=== PATIENT | male | born 1990 | race Caucasian/White ===

== ENCOUNTER 2019-05-28 12:49 | Emergency (ER) | payer OTHER ==
[2019-05-28 13:44] LABS: ABS Basophils 0.1 10^3/ul (0-0.2); ABS Eosinophils 0.1 10^3/ul (0-0.6); ABS Monocytes 0.9 10^3/ul (0-0.8); ABS Neutrophils 3.7 10^3/ul (1.5-7.7); Eosinophil % 0.8 %; Hematocrit 47 % (42-52); Hemoglobin 16.2 g/dL (14.0-18.0); Lymphocyte % 30.3 %; Mean Corpuscular HGB Conc 35 g/dL (31-36); Mean Corpuscular Hemoglobin 33 pg (27-31); Mean Corpuscular Volume 94 fL (80-94); Mean Platelet Volume 7.8 fL (7.4-10.4); Nucleated Red Blood Cells % 0.1; Platelet Count 309 10^3/uL (150-450); Red Blood Count 4.95 10^6 /uL (4.18-5.48); Red Cell Distribution Width 12 % (10-15); White Blood Count 6.7 10^3/uL (3.5-10.8)
[2019-05-28 14:06] LABS: ALT 20 U/L (7-52); AST 21 U/L (13-39); Albumin 4.5 g/dL (3.2-5.2); Albumin/Globulin Ratio 1.8 (1-3); Alkaline Phosphatase 93 U/L (34-104); Anion Gap 5 mmol/L (2-11); BUN/Creatinine Ratio 10.1 (8-20); Blood Urea Nitrogen 12 mg/dL (6-24); C Reactive Protein 2.03 mg/L (<8.01); CO2 Carbon Dioxide 28 mmol/L (22-32); Calcium 9.8 mg/dL (8.6-10.3); Chloride 105 mmol/L (101-111); EGFR African American 86.9 (>60); EGFR Non-African American 71.8 (>60); Globulin 2.5 g/dL (2-4); Glucose 112 mg/dL (70-100); Potassium 4.5 mmol/L (3.5-5.0); Sodium 138 mmol/L (135-145)
[2019-05-28 14:26] LABS: Alcohol < 10 mg/dL (<10)
--- NOTE | 2019-05-28 16:39 | ED ---
Headache - HPI Summary HPI Summary: A 29 y/o male presents to [facility] with a chief complaint of a headache at the base of his head, by his neck. At triage he rated his pain as a 4/10 in severity. He notes that 3 days ago just after doing pushups he had pain in the back of his head near his neck, and also had some muscle spasms. This episode resolved, but yesterday at 16:00 when standing his pain returned and has been constant but less severe. He denies any pain with movement. He reports some nausea this morning, and says that one of his eyes intermittently has a hard time focusing and he jiang blurred vision. Pt denies any fever, chills, erythema of eyes, sore throat, CP, SOB, cough, abdominal pain, vomiting, dysuria, hematuria, myalgia, edema, or rash. He denies being prone to headache or migraines. He denies any PMHx, and says that he is not prone to migraines or headaches. He notes a FHx of migraines from his mother. SHx of knee surgery. He says that he drinks daily and consumes anywhere from 2-[address] up to 10 beers every day. He says that he has gone days without drinking and if he does not drink he does not withdrawal. - History Of Current Complaint Chief Complaint: EDHeadache Stated Complaint: SEVERE HEADACHE/HARD TIME STANDING PER PT Time Seen by Provider: 05/28/19 16:14 Hx Obtained From: Patient Onset/Duration: Sudden Onset, Started days ago, Still Present Initially Headache Was: Severe Currently Pain Is: Current Pain Scale(0-10)= - 4, Moderate Timing: Constant, Days Character: Unable To Describe Aggravating Factor: Nothing Allevating Factors: Nothing Associated Signs And Symptoms: Nausea, Neck Pain, Visual Changes, Other (Noted In Comments) - lightheaded - Allergies/Home Medications Allergies/Adverse Reactions: Allergies Allergy/AdvReac Type Severity Reaction Status Date / Time No Known Allergies Allergy Verified 05/28/19 13:01 Home Medications: Home Medications NK [No Home Medications Reported] 05/28/19 [History Confirmed 05/28/19] PMH/Surg Hx/FS Hx/Imm Hx Sensory History: Denies: Hx Deafness EENT History: Denies: Hx Deafness Neurological History: Denies: Hx Headaches, Hx Migraine - Surgical History Surgical History: Yes Surgery Procedure, Year, and Place: knee surgery Infectious Disease History: No Infectious Disease History: Denies: Traveled Outside the [place] in Last 30 Days - Family History Known Family History: Positive: Other - positive: migraines - mother - Social History Alcohol Use: Daily Substance Use Type: Reports: Marijuana Smoking Status (MU): Never Smoked Tobacco Review of Systems Negative: Fever, Chills Positive: Blurred Vision. Negative: Erythema Negative: Sore Throat Negative: Chest Pain Negative: Shortness Of Breath, Cough Positive: Nausea. Negative: Abdominal Pain, Vomiting Negative: dysuria, hematuria Positive: Myalgia, Other - positive: neck stiffness at the base of the skull, muscle spasms. Negative: Edema Negative: Rash Neurological: Other - positive: lightheaded Positive: Headache All Other Systems Reviewed And Are Negative: Yes Physical Exam - Summary Physical Exam Summary: Constitutional: Well-developed, Well-nourished, Alert. (-) Distressed Skin: Warm, Dry HENT: Normocephalic; Atraumatic Eyes: Conjunctiva normal Neck: Musculoskeletal ROM normal neck. (-) JVD, (-) Stridor, (-) Tracheal deviation Cardio: Rhythm regular, rate normal, Heart sounds normal; Intact distal pulses; The pedal pulses are 2+ and symmetric. Radial pulses are 2+ and symmetric. (-) Murmur Pulmonary/Chest wall: Effort normal. (-) Respiratory distress, (-) Wheezes, (-) Rales Abd: Soft. (-) Tenderness, (-) Distension, (-) Guarding, (-) Rebound Musculoskeletal: (-) Edema Lymph: (-) Cervical adenopathy Neuro: Alert, Oriented x3, Strength normal, Cranial nerves II-XII are grossly intact. (-) Dysmetria, (-) Nystagmus, (-) Ataxia by finger to nose testing, (-) Sensory deficit. Mild tenderness right occipital scalp, full head/neck ROM Psych: Mood and affect Normal Triage Information Reviewed: Yes Vital Signs On Initial Exam: Initial Vitals Temp Pulse Resp BP Pulse Ox 99.0 F 65 14 149/104 98 05/28/19 12:58 05/28/19 12:58 05/28/19 12:58 05/28/19 12:58 05/28/19 12:58 Vital Signs Reviewed: Yes Diagnostics - Vital Signs Vital Signs Temp Pulse Resp BP Pulse Ox 05/28/19 15:06 98.3 F 62 16 148/92 99 05/28/19 12:58 99.0 F 65 14 149/104 98 - Laboratory Lab Results: Lab Results 05/28/19 05/28/19 05/28/19 Range/Units 13:33 13:33 13:33 WBC 6.7 (3.5-10.8) 10^3/uL RBC 4.95 (4.18-5.48) 10^6 /uL Hgb 16.2 (14.0-18.0) g/dL Hct 47 (42-52) % MCV 94 (80-94) fL MCH 33 H (27-31) pg MCHC 35 (31-36) g/dL RDW 12 (10-15) % Plt Count 309 (150-450) 10^3/uL MPV 7.8 (7.4-10.4) fL Neut % (Auto) 54.9 % Lymph % (Auto) 30.3 % [place] % (Auto) 13.0 % Eos % (Auto) 0.8 % Baso % (Auto) 1.0 % Absolute Neuts (auto) 3.7 (1.5-7.7) 10^3/ul Absolute Lymphs (auto) 2.0 (1.0-4.8) 10^3/ul Absolute Monos (auto) 0.9 H (0-0.8) 10^3/ul Absolute Eos (auto) 0.1 (0-0.6) 10^3/ul Absolute Basos (auto) 0.1 (0-0.2) 10^3/ul Absolute Nucleated RBC 0.0 10^3/ul Nucleated RBC % 0.1 Sodium 138 (135-145) mmol/L Potassium 4.5 (3.5-5.0) mmol/L Chloride 105 (101-111) mmol/L Carbon Dioxide 28 (22-32) mmol/L Anion Gap 5 (2-11) mmol/L BUN 12 (6-24) mg/dL Creatinine 1.19 H (0.67-1.17) mg/dL Est GFR ( Amer) 86.9 (>60) Est GFR (Non-Af Amer) 71.8 (>60) BUN/Creatinine Ratio 10.1 (8-20) Glucose 112 H (70-100) mg/dL Lactic Acid 0.9 (0.5-2.0) mmol/L Calcium 9.8 (8.6-10.3) mg/dL Total Bilirubin 0.50 (0.2-1.0) mg/dL AST 21 (13-39) U/L ALT 20 (7-52) U/L Alkaline Phosphatase 93 (34-104) U/L C-Reactive Protein 2.03 (<8.01) mg/L Total Protein 7.0 (6.4-8.9) g/dL Albumin 4.5 (3.2-5.2) g/dL Globulin 2.5 (2-4) g/dL Albumin/Globulin Ratio 1.8 (1-3) Serum Alcohol < 10 (<10) mg/dL Result Diagrams: 05/28/19 13:33 05/28/19 13:33 Lab Statement: Any lab studies that have been ordered have been reviewed, and results considered in the medical decision making process. - CT Brain CT Interpretation Completed By: Radiologist Summary of CT Findings: No acute intracranial abnormality. ED physician has reviewed this imaging report. Head CTA CT Interpretation Completed By: Radiologist Summary of CT Findings: HEAD ANGIOGRAM IMPRESSION: Negative CT angiogram of the dominant intracranial arterial vasculature. 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 ED physician has reviewed this imaging report. Re-Evaluation - Re-Evaluation First Eval Re-Evaluation Time: 21:23 Change: Improved Comment: All symptoms resolved with reglan Headache Course/Dx - Course Course Of Treatment: A 29 y/o male presents to [facility] with a chief complaint of a headache at the base of his head, by his neck. At triage he rated his pain as a 4/10 in severity. He notes that 3 days ago just after doing pushups he had pain in the back of his head near his neck, and also had some muscle spasms. This episode resolved, but yesterday at 16:00 when standing his pain returned and has been constant but less severe. He denies any pain with movement. He reports some nausea this morning, and says that one of his eyes intermittently has a hard time focusing and he jiang blurred vision. He denies being prone to headache or migraines. He denies any PMHx, and says that he is not prone to migraines or headaches. He notes a FHx of migraines from his mother. SHx of knee surgery. He says that he drinks daily and consumes anywhere from 2-[address] up to 10 beers every day. He says that he has gone days without drinking and if he does not drink he does not withdrawal. The physical exam revealed mild tenderness right occipital scalp, full head/neck ROM. Brain CT impression: No acute intracranial abnormality. In the ED course the patient was given Iohexol IV, Reglan IV, and sodium chloride IV. HEAD ANGIOGRAM IMPRESSION: Negative CT angiogram of the dominant intracranial arterial vasculature. 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 Blood work, chemistries, urines and toxicology obtained and are WNL. Upon re- eval all symptoms are resolved. Consider new onset migraine, occipital neuralgia. Intracerebral dissection has been ruled out. I do not suspect subarachnoid hemorrhage. The patient will be discharged. He was instructed to Follow up with Dr. Snell, neuro, in 3-5 days, return to the emergency department if visual problems or severe headache recurs and to take Tylenol and Ibuprofen as needed for pain. The patient is agreeable with this plan. - Diagnoses Provider Diagnoses: Occipital headache Discharge - Sign-Out/Discharge Documenting (check all that apply): Patient Departure - DC Patient Received Moderate/Deep Sedation with Procedure: No - Discharge Plan Condition: Stable Disposition: HOME Patient Education Materials: Acute Headache (DC) Referrals: Katie Law MD [Primary Care Provider] - (2-3 days) Miles Snell MD [Medical Doctor] - (3-5 days) Additional Instructions: Follow up with Dr. Snell in 3-5 days. Return to the emergency department if visual problems or severe headache recurs. Take Tylenol and Ibuprofen as needed for pain. - Attestation Statements Document Initiated by Scribe: Yes Documenting Scribe: Evaristo Hall Provider For Whom Scribe is Documenting (Include Credential): Mervin Daniels MD Scribe Attestation: IEvaristo, scribed for Mervin Daniels MD on 05/28/19 at 2134. Status of Scribe Document: Ready
[2019-05-28] MEDS ORDERED: NS 0.9% 1000 ML** 1,000 ML IV ONE (16:50)
[2019-05-28] MEDS ORDERED: Metoclopramide IV* 5 MG/ML 2 ML VIAL IV SLOW PU ONE (16:50)
[2019-05-28] MEDS ORDERED: Iohexol 350* (CONTRAST) 500 ML MDV IV ONE (17:02)
[2019-05-28 17:27] LABS: Urine Appearance Clear; Urine Bilirubin Negative (Negative); Urine Blood Negative (Negative); Urine Color Yellow; Urine Glucose Negative (Negative); Urine Ketones Negative (Negative); Urine Nitrite Negative (Negative); Urine Protein Negative (Negative); Urine Specific Gravity 1.013 (1.010-1.030); Urine Urobilinogen Negative (Negative)
[2019-05-28 17:50] LABS: Urine Benzodiazepine Screen None Detected (None Detect); Urine Opiates Screen None Detected (None Detect)
[2019-05-28 22:20] VITALS: BP 127/78
== END 2019-05-28 22:19 | disposition home or self-care (01) ==
LOC: ED 12:49
DX: R51 Headache (principal); M54.2 Cervicalgia; R11.0 Nausea; H53.8 Other visual disturbances; R42 Dizziness and giddiness; M26.69 Other specified disorders of temporomandibular joint; R00.1 Bradycardia, unspecified
CPT/HCPCS: 36415; 70450; 70496; 70498; 80053; 80307; 80320; 81003; 83605; 85025; 86140; 93005; 96361; 96374; 99283; G0480; J2765; Q9967

== ENCOUNTER 2019-05-30 11:02 | Emergency (ER) | payer OTHER ==
--- OUTSIDE RECORDS SUMMARY | 2019-05-30 11:27 | XMS REPORT | Continuity of Care Document ---
:1990 External Reference #:[id number] Author Name Katie Law M.D. Address [address] [facility] [address] [place] [address] Care Team Providers Name Role Phone Katie Law MD Care Team Information Roofing Technician Unavailable Payers Date Identification Numbers Payment Provider Subscriber Effective: 2017 Policy Number: [id number] [employer] Galindo Moncada PayID: [id number] [address] [place] [address] Problems Description No Active Problems Family History Date Family Member(s) Observation Comments Father 54 Father due to Hypertension () Mother 50 First Daughter Age is Unknown 9 MONTHS Second Daughter 4 Social History Type Date Description Comments Sex Unknown Marital Status Legal Status: ETOH Use Occasionally consumes alcohol Tobacco Use Start: Unknown Patient has never smoked Medications History Medications SIG Qnty Indications Ordering Provider Date Amoxicillin 1 by mouth 30tabs J02.0 Katie Law, 04/22/2018 - 500mg three times a M.D. 05/02/2018 Tablets day History Medications Amoxicillin 2 by mouth 40tabs J02.0 Katie Law, 05/04/2016 - 500mg twice a day M.D. 05/14/2016 Tablets No Active Medications Katie Law, 04/16/2013 - M.D. 05/04/2016 Medications Administered in Office Medication SIG Qnty Indications Ordering Provider Date Intradermal Mantoux CARLOS Braun 07/02/2006 Injection Sara Test Katie Law M.D. 05/30/2000 Injection Immunizations CPT Code Status Date Vaccine Lot # [id number] Given 08/06/2002 Td 7 Years And Older Vital Signs Date Vital Result Comment 05/29/2019 2:04pm BP Systolic 130 mmHg BP Diastolic 82 mmHg Height 74 inches 6'2" Weight 176.00 lb BMI (Body Mass Index) 22.6 kg/m2 Heart Rate 73 /min Respiratory Rate 16 /min 04/22/2018 11:18am BP Systolic 128 mmHg BP Diastolic 90 mmHg Height 74 inches 6'2" Weight 166.00 lb BMI (Body Mass Index) 21.3 kg/m2 Heart Rate 78 /min Body Temperature 96.5 F Respiratory Rate 18 /min 05/04/2016 1:36pm BP Systolic 120 mmHg BP Diastolic 80 mmHg Height 74 inches 6'2" Weight 157.00 lb BMI (Body Mass Index) 20.2 kg/m2 Heart Rate 78 /min Body Temperature 98.1 F Respiratory Rate 19 /min Results Test Date Facility Test Result H/L Range Note Urine Drug 05/28/2019 [facility] Urine None Detected None Detect [facility] Screen Urine Barbiturates Screen None Detected None Detect Urine Benzodiazepine Screen None Detected None Detect Urine Cannabinoids Screen Presumptive Posi <SEE NOTE> Abnormal None Detect 1 Urine Cocaine Screen None Detected None Detect Urine Opiates Screen None Detected None Detect Urine Phencyclidine Screen None Detected None Detect 2 CBC Auto Diff 05/28/2019 [facility] White Blood Count 6.7 10^3/uL N 3.5-10.8 Red Blood Count 4.95 10^6/uL N 4.18-5.48 Hemoglobin 16.2 g/dL N 14.0-18.0 Hematocrit 47 % N 42-52 Mean Corpuscular Volume 94 fL N 80-94 Mean Corpuscular Hemoglobin 33 pg High 27-31 Mean Corpuscular HGB Conc 35 g/dL N 31-36 Red Cell Distribution Width 12 % N 10-15 Platelet Count 309 10^3/uL N 150-450 Mean Platelet Volume 7.8 fL N 7.4-10.4 Abs Neutrophils 3.7 10^3/uL N 1.5-7.7 Abs Lymphocytes 2.0 10^3/uL N 1.0-4.8 Abs Monocytes 0.9 10^3/uL High 0-0.8 Abs Eosinophils 0.1 10^3/uL N 0-0.6 Abs Basophils 0.1 10^3/uL N 0-0.2 Abs Nucleated RBC 0.0 10^3/uL Granulocyte % 54.9 % Lymphocyte % 30.3 % Monocyte % 13.0 % Eosinophil % 0.8 % Basophil % 1.0 % Nucleated Red Blood Cells % 0.1 Laboratory test finding 05/28/2019 [facility] Lactic Acid 0.9 mmol/L N 0.5-2.0 3 Comp Metabolic Panel 05/28/2019 [facility] Sodium 138 mmol/L N 135- 145 Potassium 4.5 mmol/L N 3.5-5.0 Chloride 105 mmol/L N 101-111 Co2 Carbon Dioxide 28 mmol/L N 22-32 Anion Gap 5 mmol/L N 2-11 Glucose 112 mg/dL High 70-100 Blood Urea Nitrogen 12 mg/dL N 6-24 Creatinine 1.19 mg/dL High 0.67-1.17 BUN/Creatinine Ratio 10.1 N 8-20 Calcium 9.8 mg/dL N 8.6-10.3 Total Protein 7.0 g/dL N 6.4-8.9 Albumin 4.5 g/dL N 3.2-5.2 Globulin 2.5 g/dL N 2-4 Albumin/Globulin Ratio 1.8 N 1-3 Total Bilirubin 0.50 mg/dL N 0.2-1.0 Alkaline Phosphatase 93 U/L N 34-104 Alt 20 U/L N 7-52 Ast 21 U/L N 13-39 Egfr Non- 71.8 >60 Egfr 86.9 >60 4 Laboratory test 05/28/2019 [facility] C Reactive Protein 2.03 mg/L N <8.01 finding Alcohol < 10 mg/dL N <10 Urinalysis Profile 05/28/2019 [facility] Urine Color Yellow Urine Appearance Clear Urine Specific [place] 1.013 N 1.010-1.030 Urine pH 5.0 N 5-9 Urine Urobilinogen Negative Negative Urine Ketones Negative Negative Urine Protein Negative Negative Urine Leukocytes Negative Negative Urine Blood Negative Negative Urine Nitrite Negative Negative Urine Bilirubin Negative Negative Urine Glucose Negative Negative 1 Presumptive Positive Presumptive positive results are unconfirmed. 2 The urine specimen was tested at the listed cutoffs: Drug class test level (ng/mL) Amphetamines 500 Barbiturates 200 Benzodiazepine metabolites 200 Cocaine metabolites 150 Cannabinoids 50 Opiates 300 Pcp 25 Specimen was received without chain of custody. Results should be used for medical purposes only. 3 [facility] Severe Sepsis and Septic Shock Management Bundle Measure requires all lactic acids initially measuring >2.0 mmol/L be repeated. 4 Because ethnic data is not always readily available, this report includes an eGFR for both -Americans and non- Americans. The National Kidney Disease Education Program (NKDEP) does not endorse the use of the MDRD equation for patients that are not between the ages of 18 and 70, are , have extremes of body size, muscle mass, or nutritional status, or are non- or non-. According to the National Kidney Foundation, irrespective of diagnosis, the stage of the disease is based on the level of kidney function: Stage Description GFR(mL/min/1.73 m(2)) 1 Kidney damage with normal or decreased GFR 90 2 Kidney damage with mild decrease in GFR 60-89 3 Moderate decrease in GFR 30-59 4 Severe decrease in GFR 15-29 5 Kidney failure <15 (or dialysis) Procedures Date Code Description Status 04/22/2018 15470 Tympanometry Completed 05/04/2016 94780 Visual Screening Test Completed 05/04/2016 52407 Audiometry, Bek[place], Screening Completed 06/19/2006 65007 Visual Screening Test Completed 06/19/2006 49300 Diagnostic Bekesy Audiometry Completed 06/05/2005 64153 Visual Screening Test Completed 06/05/2005 17547 Diagnostic [place]ekesy Audiometry Completed Encounters Type Date Location Provider Dx Diagnosis Office Visit 05/29/2019 [facility] Katie Law J30.Reza Allergic rhinitis, 2:00p Christiano unspecified L20.9 Atopic dermatitis, unspecified J02.0 Streptococcal pharyngitis H92.03 Otalgia, bilateral R73.01 Impaired fasting glucose R51 Headache M54.2 Cervicalgia M54.12 Radiculopathy, cervical region Z00.01 Encounter for general adult medical exam w abnormal findings Office Visit 04/22/2018 11:30a [facility] Katie Law J30.9 Allergic rhinitisDemarcus M.D. unspecified L20.9 Atopic dermatitis, unspecified J02.0 Streptococcal pharyngitis H92.03 Otalgia, bilateral Office Visit 05/04/2016 2:00p [facility] Katie Law Z00.01 Encounter for Christiano Tracy general adult medical exam w abnormal findings J30.9 Allergic rhinitis, unspecified L20.9 Atopic dermatitis, unspecified J02.0 Streptococcal pharyngitis J04.0 Acute laryngitis H92.03 Otalgia, bilateral R05 Cough J01.40 Acute pansinusitis, unspecified R09.81 Nasal congestion Z68.20 Body mass index (BMI) 20.0-20.9, adult Plan of Treatment 05/29/2019 - Katie Law M.D.J30.9 Allergic rhinitis, unspecifiedComments: INCREASE PO FLUID USE ANTIHISTAMINE PRN SECOND HAND SMOKING [id number] Atopic dermatitis, unspecifiedComments:SKIN CARE INSTRUCTIONS LOTION OR BABY OIL 2-3 APPLICATION PER DAYUSE MOISTURIZING SOAPAVOID PROLONGED WATER EXPOSUREAVOID USING HOT WATER IN NCEYGVM16.0 Streptococcal pharyngitisComments: [id number] Otalgia, bilateralComments:STDQOWWEX91.01 Impaired fasting glucoseNew Labs:Hemoglobin A1c, Ordered: 05/29/19Comments:F/U [id number] HeadacheNew Labs:Lyme Disease Antibodies Igg/Igm, Ordered: 05/29/19Comments: TYLENOL OR MOTRIN PRNReferral:Miles Snell MD, WnmsfgbbuR97.2 CervicalgiaComments:EXERCISE/HEAT /MESSAGEAVOID HEAVY LIFTING WT LOSSTYLENOL OR MOTRIN PRNM54.12 Radiculopathy, cervical regionComments:EXERCISE/HEAT / MESSAGEAVOID HEAVY LIFTING WT LOSSTYLENOL OR MOTRIN PRNZ00.01 Encounter for general adult medical examination with abnormal findings
--- NOTE | 2019-05-30 12:13 | ED ---
Headache - HPI Summary HPI Summary: A 29 y/o male presents to [facility] with a chief complaint of a headache since 05/25. He said that his headache started after he was doing push ups. He went to the ED on 05/28/19 and had a negative head CTA and a negative brain CT. He was discharged and instructed to follow up with neurology, but says that he could not get an appointment until December. He currently rates his pain as a 5/10 in severity and says that his pain is at the base of his skull and radiates towards the top of his head. His headache is worsened with increased activity and sexual intercourse and notes that his pain can shoot up to a 10/10. He denies any fevers, chills, N/V, neck stiffness or visual changes. He denies any PMHx. - History Of Current Complaint Chief Complaint: EDHeadache Stated Complaint: HEADACHE PER PT Time Seen by Provider: 05/30/19 11:55 Hx Obtained From: Patient Onset/Duration: Sudden Onset, Started days ago, Still Present Initially Headache Was: Moderate Currently Pain Is: Current Pain Scale(0-10)= - 5 Timing: Constant, Days Character: Unable To Describe Location of Headache: Other: - near the base of his skull Radiates to: to the top of his head Aggravating Factor: Exertion, Other - sexual intercourse Allevating Factors: Nothing Associated Signs And Symptoms: Negative - fever, chills, N/V, neck stiffness, visual changes - Allergies/Home Medications Allergies/Adverse Reactions: Allergies Allergy/AdvReac Type Severity Reaction Status Date / Time No Known Allergies Allergy Verified 05/30/19 11:06 PMH/Surg Hx/FS Hx/Imm Hx Endocrine/Hematology History: Denies: Hx Diabetes Sensory History: Denies: Hx Deafness Neurological History: Denies: Hx Headaches, Hx Migraine - Surgical History Surgery Procedure, Year, and Place: knee surgery Infectious Disease History: No Infectious Disease History: Denies: Traveled Outside the [place] in Last 30 Days - Family History Known Family History: Positive: Other - positive: migraines - mother - Social History Alcohol Use: Daily Substance Use Type: Reports: Marijuana Smoking Status (MU): Never Smoked Tobacco Review of Systems Negative: Fever, Chills Positive: Other - negaitve: visual changes Negative: Vomiting, Nausea Positive: Other - negative: neck stiffness Positive: Headache All Other Systems Reviewed And Are Negative: Yes Physical Exam - Summary Physical Exam Summary: GENERAL: Patient is a well-developed and nourished M who is lying comfortable in the stretcher. Patient is not in any acute respiratory distress. HEAD AND FACE: Normocephalic EYES: PERRLA, EOMI x 2. EARS: Hearing grossly intact. MOUTH: Oropharynx within normal limits. NECK: Supple, trachea is midline, no adenopathy, no JVD, no carotid bruit. CHEST: Symmetric, no tenderness at palpation LUNGS: Clear to auscultation bilaterally. No wheezing or crackles. CVS: Regular rate and rhythm, S1 and S2 present, no murmurs or gallops appreciated. ABDOMEN: Soft, non-tender. Bowel sounds are normal. No abnormal abdominal pulsations. EXTREMITIES: Full ROM in all major joints, no edema, no cyanosis or clubbing. NEURO: Alert and oriented x 3. No acute neurological deficits. Speech is normal and follows commands. SKIN: Dry and warm Neuro exam extended: Cranial nerves II-XII grossly intact, no dysmetria finger to nose, nml heel to verduzco Triage Information Reviewed: Yes Vital Signs On Initial Exam: Initial Vitals Temp Pulse Resp BP Pulse Ox 99 F 74 18 141/94 98 05/30/19 11:04 05/30/19 11:04 05/30/19 11:04 05/30/19 11:04 05/30/19 11:04 Vital Signs Reviewed: Yes Diagnostics - Vital Signs Vital Signs Temp Pulse Resp BP Pulse Ox 05/30/19 11:04 99 F 74 18 141/94 98 - Laboratory Lab Statement: Any lab studies that have been ordered have been reviewed, and results considered in the medical decision making process. Re-Evaluation - Re-Evaluation First Eval Re-Evaluation Time: 13:59 Change: Improved Comment: Discussed plan for DC and follow up. Headache Course/Dx - Course Course Of Treatment: A 29 y/o male presents to [facility] with a chief complaint of a headache since 05/25/19. The physical exam was unremarkable. Dr. Snell will consult with the patient in the ED. In the ED course the patient was given Benadryl IV, Reglan IV and Sodium Chloride IV. Dr. Snell was trying to see the patient in the ED but there were other patients. He will expidite his follow up. He did not believe any other inquires are warranted because his symptoms are better. The patient had a negative Head CTA and brain CT two days ago. We really do not think that this could be a subarachnoid as the patient's symptoms have gotten better since onset on 05/25/19. I discussed results with patient, and he reports feeling better. He is hemodynamically stable and safe for discharge. Strict return precautions given and he will otherwise follow up with his PCP. - Diagnoses Provider Diagnoses: Headache - Physician Notifications Discussed Care Of Patient With: Miles Snell Time Discussed With Above Provider: 12:17 Instructed by Provider To: MD Will See In ED Discharge - Sign-Out/Discharge Documenting (check all that apply): Patient Departure - DC Patient Received Moderate/Deep Sedation with Procedure: No - Discharge Plan Condition: Stable Disposition: HOME Patient Education Materials: Acute Headache (ED) Referrals: Katie Law MD [Primary Care Provider] - (1-3 days) Miles Snell MD [Medical Doctor] - Additional Instructions: Follow up with your primary care physician in 1-3 days. RETURN TO THE EMERGENCY DEPARTMENT FOR CHANGING OR WORSENING SYMPTOMS. - Billing Disposition and Condition Condition: STABLE Disposition: Home - Attestation Statements Document Initiated by Scribe: Yes Documenting Scribe: Evaristo Hall Provider For Whom Sulma is Documenting (Include Credential): Mervin Daniels MD Scribe Attestation: Evaristo Jimenez, scribed for Mervin Daniels MD on 05/30/19 at 2041. Scribe Documentation Reviewed: Yes Provider Attestation: The documentation as recorded by the Evaristo reeves accurately reflects the service I personally performed and the decisions made by , Mervin Daniels MD Status of Scribe Document: Viewed
[2019-05-30] MEDS ORDERED: NS 0.9% 1000 ML** 1,000 ML IV ONE (12:16)
[2019-05-30] MEDS ORDERED: diPHENhydraMINE IV* 50 MG/ML 1 ml VIAL (BENADRYL) IV ONE (12:17)
[2019-05-30] MEDS ORDERED: Metoclopramide IV* 5 MG/ML 2 ML VIAL IV ONE (12:17)
[2019-05-30 15:23] VITALS: BP 120/75
== END 2019-05-30 15:22 | disposition home or self-care (01) ==
LOC: ED 11:02
DX: R51 Headache (principal)
CPT/HCPCS: 96361; 96374; 96375; 99283; J1200; J2765